=== PATIENT | female | born 1990 | race American Indian/Alaskan Native ===

== ENCOUNTER 2022-02-19 16:41 | Emergency (ER) | payer MEDICAID ==
[2022-02-19] MEDS ORDERED: ACETAMINOPHEN 500 MG TAB PO ONE (18:38)
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
[2022-02-19 19:43] VITALS: BP 128/89
== END 2022-02-19 19:52 | disposition home or self-care (01) ==
LOC: ED 16:41
DX: S16.1XXA Strain of muscle, fascia and tendon at neck level, initial encounter (principal); X58.XXXA Exposure to other specified factors, initial encounter; Y93.89 Activity, other specified; Y92.89 Other specified places as the place of occurrence of the external cause; Y99.8 Other external cause status
CPT/HCPCS: 72040; 99283